=== PATIENT | male | born 1990 | race Caucasian/White ===

== ENCOUNTER 2021-03-26 14:41 | Emergency (ER) | payer BC ==
[2021-03-26] MEDS ORDERED: Boostrix 0.5 ML (Tdap) VIAL ONE (15:01)
[2021-03-26] MEDS ORDERED: Lidocaine 1% w/Epinephrine 1:100K 20 ML VIAL ONE (15:16)
== END 2021-03-26 15:31 | disposition home or self-care (01) ==
LOC: NAV ERS 14:41
DX: S81.819A Laceration without foreign body, unspecified lower leg, initial encounter (principal); F17.220 Nicotine dependence, chewing tobacco, uncomplicated; Z23 Encounter for immunization; V49.9XXA Car occupant (driver) (passenger) injured in unspecified traffic accident, initial encounter
CPT/HCPCS: 12011; 90471; 90715